=== PATIENT | male | born 1955 | race Hispanic/Latino ===

== ENCOUNTER → 2018-11-18 | Outpatient (CLI) | payer OTHER ==
[~2018-11-18] VITALS: Ht 167.6 cm; Wt 108.9 kg
[~2018-11-18] MED LIST: REGADENOSON 0.4 MG/5 ML PF SYG IVP SCH
== END | disposition home or self-care (01) ==
LOC: SHCH 08:01
PROVIDERS: ATTEND Internal Medicine Cardiovascular Disease
DX: R00.2 Palpitations (principal); R07.9 Chest pain, unspecified
CPT/HCPCS: 78452; 93017; 96374; A9500 ×2; J2785

== ENCOUNTER → 2019-02-10 | Outpatient (CLI) | payer OTHER | END | disposition home or self-care (01) | LOC: SHCH 07:52 | PROVIDERS: ATTEND Internal Medicine Cardiovascular Disease | DX: I11.9 Hypertensive heart disease without heart failure (principal); E11.9 Type 2 diabetes mellitus without complications; Z95.1 Presence of aortocoronary bypass graft | CPT/HCPCS: 93306 ==

== ENCOUNTER → 2019-12-21 | Outpatient (CLI) | payer OTHER | END | disposition home or self-care (01) | LOC: SHCH 08:19 | PROVIDERS: ATTEND Internal Medicine Cardiovascular Disease | DX: I65.23 Occlusion and stenosis of bilateral carotid arteries (principal); I25.810 Atherosclerosis of coronary artery bypass graft(s) without angina pectoris | CPT/HCPCS: 93880 ==

== ENCOUNTER → 2020-11-07 | Outpatient (CLI) | payer OTHER | END | disposition home or self-care (01) | LOC: RAH 13:48 | PROVIDERS: ATTEND Internal Medicine Cardiovascular Disease | DX: M84.48XA Pathological fracture, other site, initial encounter for fracture (principal); M95.4 Acquired deformity of chest and rib; J98.11 Atelectasis; J98.4 Other disorders of lung; I25.10 Atherosclerotic heart disease of native coronary artery without angina pectoris; T81.30XA Disruption of wound, unspecified, initial encounter; Z98.890 Other specified postprocedural states | CPT/HCPCS: 71250 ==

== ENCOUNTER → 2020-11-15 | Outpatient (CLI) | payer OTHER | END | disposition home or self-care (01) | LOC: SHCH 07:36 | PROVIDERS: ATTEND Internal Medicine Cardiovascular Disease | DX: I65.23 Occlusion and stenosis of bilateral carotid arteries (principal) | CPT/HCPCS: 93880 ==

== ENCOUNTER → 2022-03-06 | Outpatient (CLI) | payer OTHER | END | disposition home or self-care (01) | LOC: SHCH 12:03 | PROVIDERS: ATTEND Internal Medicine Cardiovascular Disease | DX: I35.0 Nonrheumatic aortic (valve) stenosis (principal); I11.9 Hypertensive heart disease without heart failure; I25.10 Atherosclerotic heart disease of native coronary artery without angina pectoris; I65.23 Occlusion and stenosis of bilateral carotid arteries; E78.5 Hyperlipidemia, unspecified; E66.9 Obesity, unspecified | CPT/HCPCS: 93306; 93880 ==

== ENCOUNTER → 2022-03-07 | Outpatient (CLI) | payer OTHER | END | disposition home or self-care (01) | LOC: SHCH 08:12 | PROVIDERS: ATTEND Internal Medicine Cardiovascular Disease | DX: R07.9 Chest pain, unspecified (principal); I10 Essential (primary) hypertension | CPT/HCPCS: 78452; 93017; 96374; A9500 ×2; J2785 ==

== ENCOUNTER 2022-09-22 07:29 | Day surgery (SDC) | payer OTHER ==
[2022-09-19 10:48] LABS: BASOPHILS % (AUTO) 0.5 % (0.0-5.0); EOSINOPHILS % (AUTO) 2.2 % (0.0-8.0); HEMATOCRIT 41.8 % (42-54); LYMPHOCYTES % (AUTO) 12.1 % (21.0-51.0); MEAN CORPUSCULAR HEMOGLOBIN 29.1 pg (27.0-33.0); MEAN CORPUSCULAR HGB CONC 33.3 g/dL (32.0-36.0); MEAN CORPUSCULAR VOLUME 87.6 fL (79-99); NEUTROPHILS % (AUTO) 76.3 % (40.0-77.0); PLATELET COUNT (AUTO) 308 K/uL (130-400); RED BLOOD CELL COUNT(AUTO) 4.77 MIL/uL (4.50-6.20); RED CELL DISTRIBUTION WIDTH 13.2 % (11.0-15.5); WHITE BLOOD COUNT (AUTO) 11.6 K/uL (4.8-10.8)
[2022-09-19 10:57] LABS: INR 0.94 (0.85-1.15); PROTHROMBIN TIME 10.3 SEC (9.6-11.6)
[2022-09-19 10:58] LABS: PARTIAL THROMBOPLASTIN TIME 26.5 SEC (26.3-35.5)
[2022-09-19 10:59] LABS: APPEARANCE,URINE CLEAR (CLEAR); BILIRUBIN,URINE NEGATIVE (NEGATIVE); COLOR,URINE YELLOW (YELLOW); GLUCOSE, URINE (UA) >=1000 mg/dL (NEGATIVE); KETONES,URINE NEGATIVE (NEGATIVE); LEUKOCYTE ESTERASE ,URINE 25 Leu/uL (NEGATIVE); NITRATE,URINE NEGATIVE (NEGATIVE); OCCULT BLOOD,URINE NEGATIVE (NEGATIVE); PROTEIN,URINE 30 mg/dL (NEGATIVE); UROBILINOGEN,URINE 0.2 mg/dL (0.2-1.0)
[2022-09-19 11:04] LABS: CREATININE 0.9 mg/dL (0.5-1.5); POTASSIUM 4.3 mmol/L (3.5-5.1)
[2022-09-19 11:15] LABS: BACTERIA,URINE RARE /HPF (None Seen); MUCUS,URINE FEW LPF (None Seen); SQUAMOUS EPITHELIAL CELL,UR FEW /HPF (0-2)
[2022-09-19 11:31] LABS: B-TYPE NATRIURETIC PEPTIDE < 5 pg/mL (0-100)
[2022-09-19 15:03] VITALS: BP 153/74
[2022-09-22] VITALS (10 sets, daily range): BP systolic 125–157; BP diastolic 73–84
[~2022-09-22] VITALS: Ht 167.6 cm; Wt 116.2 kg
[~2022-09-22 07:29] MED LIST changes: +0.9% NACL 500ML IV.SOLN 500 ML IV SCH; -REGADENOSON 0.4 MG/5 ML PF SYG IVP SCH
[2022-09-22] MEDS ORDERED: 0.9%NACL 1000ML 1,000 ML IV ONE (08:14)
[2022-09-22] MEDS ORDERED: IOHEXOL 350 MG/ML 100ML INFUS..BTL IV ONE (09:54)
[2022-09-22] MEDS ORDERED: NITROGLYCERIN 50MG VIAL ONE (09:54)
[2022-09-22] MEDS ORDERED: HEPARIN 10,000 UNIT/10ML (1,000 UNIT/ML) VIAL ONE (09:54)
[2022-09-22] MEDS ORDERED: LIDOCAINE HCL 1% 20 ML VIAL ONE (09:54)
[2022-09-22] MEDS ORDERED: MEPERIDINE-PF 25 MG/ML SYG ONE ×3 (09:55→10:43)
[2022-09-22] MEDS ORDERED: IOHEXOL-350 50ML VIAL IV ONE (09:55)
[2022-09-22] MEDS ORDERED: MIDAZOLAM HCL 1 MG/ML 2ML VIAL ONE ×3 (09:55→10:43)
[2022-09-22] MEDS ORDERED: TICAGRELOR 90 MG TABLET ONE (11:20)
[2022-09-22] MEDS ORDERED: DEXTROSE 50%-WATER 50 ML DISP.SYRIN IV PRN (12:00)
[2022-09-22] MEDS ORDERED: ALPRAZOLAM 0.5 MG TABLET PO PRN (12:00)
[2022-09-22] MEDS ORDERED: 0.9%NACL 1000ML 1,000 ML IV SCH (12:00)
[2022-09-22] MEDS ORDERED: SODIUM BICARB 50MEQ 50ML VIAL 0 ML ONE (14:44)
[2022-09-22] MEDS ORDERED: SODIUM BICARB 50MEQ 50ML VIAL 50 ML ONE (14:55)
[2022-09-22] MEDS ORDERED: INSLAN SQ (15:58)
[2022-09-22] MEDS ORDERED: CYAN-35 PO (15:58)
[2022-09-22] MEDS ORDERED: CLOP-31 PO (15:58)
[2022-09-22] MEDS ORDERED: SIMV40TA59 PO (15:58)
[2022-09-22] MEDS ORDERED: METO50TA18 PO (15:58)
[2022-09-22] MEDS ORDERED: GABA600T10 PO (15:59)
[2022-09-22] MEDS ORDERED: HYDR-4068 PO (15:59)
[2022-09-22] MEDS ORDERED: FURO80TA87 PO (15:59)
[2022-09-22] MEDS ORDERED: METF-445 PO (15:59)
[2022-09-22] MEDS ORDERED: INSULIN HUMULIN R 100 UNIT/ML 3ML SQ SCH (16:30)
== END 2022-09-22 14:50 | disposition home or self-care (01) ==
LOC: DAH 07:29
PROVIDERS: ATTEND Internal Medicine Cardiovascular Disease
DX: I25.110 Atherosclerotic heart disease of native coronary artery with unstable angina pectoris (principal); I25.82 Chronic total occlusion of coronary artery; E03.9 Hypothyroidism, unspecified; E66.9 Obesity, unspecified; G47.33 Obstructive sleep apnea (adult) (pediatric); Z79.01 Long term (current) use of anticoagulants; Z79.899 Other long term (current) drug therapy; Z98.890 Other specified postprocedural states; Z79.4 Long term (current) use of insulin; Z79.890 Hormone replacement therapy; Z85.46 Personal history of malignant neoplasm of prostate; Z83.3 Family history of diabetes mellitus; Z80.9 Family history of malignant neoplasm, unspecified; Z68.41 Body mass index [BMI] 40.0-44.9, adult
CPT/HCPCS: 80048; 83880; 85025; 85610; 85730; 81001; 36415; 71045; 93005; 93459; 85347; 82948 ×2; C9600; C1769; C1887 ×2; C1894 ×2; C1760; C1874 ×3; Q9965 ×2; A4663 ×2; J7030; J3490 ×2; J1644 ×2; J2250 ×3; J2175 ×3; Q9967 ×2; A4215; A4222; A4221; A4216; A4606; A4223 ×3; 96360; 96361; 99156; 99157

== ENCOUNTER 2023-02-13 05:50 | Day surgery (SDC) | payer OTHER ==
[2023-02-12 13:02] VITALS: BP 152/60
[2023-02-13] VITALS (18 sets, daily range): BP systolic 115–168; BP diastolic 58–85
[~2023-02-13] VITALS: Ht 167.6 cm; Wt 110.9 kg
[~2023-02-13 05:50] MED LIST changes: -0.9% NACL 500ML IV.SOLN 500 ML IV SCH; +CEFAZOLIN SODIUM 2 GM VIAL IVPB SCH; +FURO80TA87 PO; +GABA600T10 PO; +HYDR-4068 PO; +INSLAN SQ; +METF-445 PO; +METO50TA18 PO; +SIMV40TA59 PO
[2023-02-13] MEDS ORDERED: 0.9%NACL 1000ML 1,000 ML IV ONE (06:50)
[2023-02-13] MEDS ORDERED: BRILINTA PO (07:24)
[2023-02-13 07:37] LABS: ALBUMIN 3.8 g/dL (3.5-5.0); BILIRUBIN,DIRECT 0.1 mg/dL (0.0-0.3); TOTAL PROTEIN, SERUM 7.3 g/dL (6.0-8.3)
[2023-02-13] MEDS ORDERED: IOHEXOL-350 50ML VIAL IV ONE (08:25)
[2023-02-13] MEDS ORDERED: DEXAMETHASONE SOD PHOSPHATE 4 MG/ML 1ML VIAL ONE (09:13)
[2023-02-13] MEDS ORDERED: LIDOCAINE PF 100MG/5ML (2%) SYRINGE 5ML ONE (09:13)
[2023-02-13] MEDS ORDERED: MIDAZOLAM HCL 1 MG/ML 2ML VIAL ONE (09:14)
[2023-02-13] MEDS ORDERED: FENTANYL CITRATE PF 50 MCG/1 ML 2ML VIAL ONE ×2 (09:14→09:51)
[2023-02-13] MEDS ORDERED: PROPOFOL 10 MG/ML 20ML VIAL IV ONE (09:14)
[2023-02-13] MEDS ORDERED: ONDANSETRON 4MG INJ ONE (09:14)
[2023-02-13] MEDS ORDERED: ROCURONIUM 10MG/1ML SYR 10 MG/ML ML ONE (09:14)
[2023-02-13] MEDS ORDERED: BUPIVACAINE/PF 0.5% 10ML VIAL ONE (09:15)
[2023-02-13] MEDS ORDERED: PHENYLEPHRINE HCL 10 MG/ML 1ML VIAL IV ONE (09:19)
[2023-02-13] MEDS ORDERED: DEXMEDETOMIDINE HCL 200 MCG/2 ML VIAL IV ONE (09:23)
[2023-02-13] MEDS ORDERED: CEFAZOLIN SODIUM 3 GM VIAL IV ONE (09:35)
[2023-02-13] MEDS ORDERED: BUPIVACAINE/PF 0.5% 10ML VIAL IJ ONE (09:41)
[2023-02-13] MEDS ORDERED: EPHEDRINE SULFATE 50 MG/ML AMPULE ONE (09:43)
[2023-02-13] MEDS ORDERED: SUGAMMADEX SODIUM 200 MG/2 ML VIAL IV ONE (10:02)
[2023-02-13] MEDS ORDERED: MEPERIDINE-PF 25 MG/ML SYG ONE ×2 (10:49→10:58)
== END 2023-02-13 12:10 | disposition home or self-care (01) ==
LOC: DAH 05:50
PROVIDERS: ATTEND Surgery
DX: K80.10 Calculus of gallbladder with chronic cholecystitis without obstruction (principal); Z20.822 Contact with and (suspected) exposure to COVID-19; E66.01 Morbid (severe) obesity due to excess calories; I10 Essential (primary) hypertension; J44.9 Chronic obstructive pulmonary disease, unspecified; E11.9 Type 2 diabetes mellitus without complications; Z98.890 Other specified postprocedural states; Z79.899 Other long term (current) drug therapy; Z68.39 Body mass index [BMI] 39.0-39.9, adult
CPT/HCPCS: 47563; 80076; 82948 ×2; 36415; 87635; 74300; J1100; A4663; J7030 ×2; C1758; J0690 ×2; J3010 ×2; J3490 ×4; J2001; J2250; J2704; J2405; J2175 ×2; J2370; Q9967; A4649 ×2; A6252; A4930 ×2; A5120; A4215; A4223; A4222; A4221; A4600

== ENCOUNTER → 2024-01-25 | Outpatient (CLI) | payer OTHER ==
[~2024-01-25] MED LIST changes: +ADV250 IH; +BRILINTA PO; -CEFAZOLIN SODIUM 2 GM VIAL IVPB SCH; +CYAN-35 PO; -FURO80TA87 PO; -GABA600T10 PO; +GLIP10TA9 PO; -INSLAN SQ; +LOSA100T59 PO; +TAMS-1 PO
[2024-01-25] MEDS: REGADENOSON 0.4 MG/5 ML PF SYG IVP ONE (14:32)
== END | disposition home or self-care (01) ==
LOC: SHCH 08:49
PROVIDERS: ATTEND Internal Medicine Cardiovascular Disease
DX: I25.119 Atherosclerotic heart disease of native coronary artery with unspecified angina pectoris (principal); R06.00 Dyspnea, unspecified
CPT/HCPCS: 78452; 96374; 93017; J2785; A9500 ×2

== ENCOUNTER → 2024-02-22 | Outpatient (CLI) | payer OTHER | END | disposition home or self-care (01) | LOC: SHCH 08:03 | PROVIDERS: ATTEND Internal Medicine Cardiovascular Disease | DX: I35.0 Nonrheumatic aortic (valve) stenosis (principal); I25.119 Atherosclerotic heart disease of native coronary artery with unspecified angina pectoris; R06.02 Shortness of breath | CPT/HCPCS: 93306 ==

== ENCOUNTER → 2024-09-09 | Outpatient (CLI) | payer OTHER ==
[~2024-09-09] MED LIST changes: +GLIP10TA16 PO; -GLIP10TA9 PO
== END | disposition home or self-care (01) ==
LOC: SHCH 10:46
PROVIDERS: ATTEND Internal Medicine Cardiovascular Disease
DX: I73.9 Peripheral vascular disease, unspecified (principal)
CPT/HCPCS: 93925

== ENCOUNTER → 2025-05-31 | Outpatient (CLI) | payer OTHER ==
[~2025-05-31] MED LIST changes: -TAMS-1 PO; +TAMS-55 PO
--- NOTE | 2025-05-31 20:14 | HMCIMG ---
EXAM: CR Chest, 2 View. CLINICAL HISTORY: COPD; ISCHEMIC HEART DISEASE COMPARISON: Radiograph dated May 06, 2023 Findings: PA and lateral views of the chest are submitted. There is mild bibasilar airspace disease that may reflect atelectasis. No pleural effusion or pneumothorax. Stable cardiomegaly. Pulmonary vessels and interstitial markings are within normal limits. IMPRESSION: 1. No acute cardiopulmonary findings. /New Site
== END | disposition home or self-care (01) ==
LOC: RAH 11:36
PROVIDERS: ATTEND Chiropractor
DX: J44.9 Chronic obstructive pulmonary disease, unspecified (principal); I25.9 Chronic ischemic heart disease, unspecified; I51.7 Cardiomegaly
CPT/HCPCS: 71046

== ENCOUNTER → 2025-06-05 | Outpatient (CLI) | payer OTHER ==
--- NOTE | 2025-06-05 16:55 | HMCSR ---
APPROVED REPORT EXAM: Two-dimensional and M-mode echocardiogram with Doppler and color Doppler. Study Details: Hx: pt states hx of lung cancer INDICATION ICD: I25.9 Chronic ischemic heart disease, unspecified, J44.9 2D Dimensions RVDd4.2 cmLVEF(%)54.5 (>50%)LVED Vol(simp.)86.0 mL IVSd1.0 (0.7-1.1cm)FS(%)28 %LVES Vol(simp.)32.0 mL LVDd5.1 (3.8-5.6cm)LA (2D)5.6 (1.6-4.0cm)LVEF(%, simp.)63 % PWd0.9 (0.7-1.1cm)Ao Root(2D)3.3 (2.0-3.7cm)LA ESV INDEX (BP)27.79 mL/m2 IVSs1.2 cmLVOT diam2.2 (1.8-2.4cm) LVDs3.6 (2.5-4.0cm) PWs1.5 cm Deformation Strain Apical 4-20.0 % Apical 2-19.7 % Apical 3-17.4 % Global Strain-19.1 % M-Mode Dimensions EPSS0.7 cm LA (MM)5.4 (1.6-4.0cm) Ao Root(MM)3.4 (2.0-3.7cm) Aortic Valve AoV Vmax2.8 m/Tracie Peak GR31.2 mmHgLVOT Vmax1.2 m/s AoV VTI0.4 mAo Mean GR21.5 mmHgLVOT VTI0.24 m PETER (VMAX)1.65 cm2AVA (VTI) 2.3 cm2 Mitral Valve MV E Vmax65.4 cm/sDECEL Rcba060 ms MV A Vmax51.2 cm/sP 1/2 T41 ms E/A ratio1.3MVA (PHT)5.4 cm2 TDI E/E' Medial8.1E/E' Lateral8.1 Medial E' Peak V8.03 cm/sLateral E' Peak V8.03 cm/s Pulmonary Valve PV Vmax1.5 m/sPV VTI0.31 mPV Mean GR4.1 mmHg PV Peak GR8.7 mmHg Tricuspid Valve TR Vmax1.7 m/sRVSP11.1 mmHg TR Peak GR11.1 mmHg Left Ventricle The left ventricle is normal size. No regional wall motion abnormalities noted. Mild concentric left ventricular hypertrophy. Left ventricular systolic function is normal, estimated LVEF is 55-60%. Inde terminate diastolic function. Right Ventricle The right ventricle is mildly dilated. The right ventricular systolic function is normal. Atria The left atrium size is normal. The right atrium size is normal. Aortic Valve Aortic valve is trileaflet. The leaflets are severely thickened and calcified. Trace aortic regurgita tion Mild-moderate aortic stenosis: Peak velocity 2.8 m/sec, mean gradient 21 mmHg. Mitral Valve Mild mitral annular calcification is noted. The leaflets are mildly thickened and calcified. Trace mi tral regurgitation. There is no mitral valve stenosis. Tricuspid Valve The tricuspid valve is normal in structure. Trace tricuspid regurgitation. RVSP is 11 mmHg. Pulmonic Valve Pulmonic valve is not well visualized. Great Vessels The aortic root is normal in size. The IVC is small in size and collapses >50% with inspiration. Pericardium No pericardial effusion. Other Information Quality : Technically diffcult study due to body habitus Conclusion Mild concentric left ventricular hypertrophy. No regional wall motion abnormalities noted. Left ventricular systolic function is normal, estimated LVEF is 55-60%. Indeterminate diastolic function. Mild-moderate aortic stenosis: Peak velocity 2.8 m/sec, mean gradient 21 mmHg. Trace aortic regurgitation Trace mitral regurgitation. Trace tricuspid regurgitation. PASP is 14 mmHg. No pericardial effusion.
== END | disposition home or self-care (01) ==
LOC: RAH 10:57
PROVIDERS: ATTEND Chiropractor
DX: I08.0 Rheumatic disorders of both mitral and aortic valves (principal); J44.9 Chronic obstructive pulmonary disease, unspecified; I25.9 Chronic ischemic heart disease, unspecified
CPT/HCPCS: 93306; 93356